=== PATIENT | male | born 1985 | race Asian ===

== ENCOUNTER 2019-04-06 13:17 | Outpatient (CLI) | payer OTHER ==
--- NOTE | 2019-04-06 21:20 | Diagnostic Imaging Report ---
PATIENT MR#: [id number] PATIENT PATIENT NAME: SHARON VALENCIA DATE OF : 1985 REFERRING PHYSICIAN: Skip Prasad EXAM DATE: 04/06/2019 ACCESSION NUMBER: [id number] EXAM DESCRIPTION: CHEST 2VIEW HISTORY: POSITIVE TB SKIN TEST. PT STATES NO CHEST COMPLAINTS. COMPARISON: None provided. CHEST RADIOGRAPH, FRONTAL AND LATERAL: Upper mediastinum: Not widened. Heart: No cardiomegaly. Lungs: No lobar infiltrate, pulmonary edema, pneumothorax or significant effusion. Skeleton: No acute findings. IMPRESSION: No acute thoracic process. No signs of active or inactive TB. Read by: Dr. Oscar Ramirez Transcribed by: Oscar Ramirez Transcribed Date: 04/06/2019 9:20:05 PM Electronically signed by: Dr. Oscar Ramirez Date signed: 04/06/2019 9:20:05 PM
== END 2019-04-06 13:27 ==
LOC: RAD 13:17
PROVIDERS: ATTEND Family Medicine
DX: R76.11 Nonspecific reaction to tuberculin skin test without active tuberculosis (principal)